=== PATIENT | female | born 1950 | race African-American/Black ===

== ENCOUNTER 2020-08-14 12:13 | Outpatient (CLI) | payer MEDICARE, BC, SELFPAY ==
--- NOTE | ~2020-08-14 | MM_ITS ---
EXAMINATION: MM screening shandra BI w karen HISTORY: Screening mammogram TECHNIQUE: Craniocaudal and mediolateral oblique 3-D tomosynthesis images were obtained and synthetic 2-D images were generated. CAD analysis was submitted and interpreted. COMPARISON: 08/11/2019, 08/09/2018, 08/05/2017 bilateral digital screening mammogram examinations BREAST PARENCHYMAL COMPOSITION: There are scattered areas of fibroglandular density. FINDINGS: Scattered benign calcifications are noted bilaterally. There is no evidence of suspicious m ass, calcification, or architectural distortion to suggest malignancy in either breast. There has bee n no suspicious interval change. IMPRESSION: 1. No mammographic evidence of malignancy. 2. Recommend routine screening mammography in one year. BI-RADS Category 1: Negative Reviewed, dictated and finalized at location A.
--- NOTE | ~2020-08-14 | DEXA_ITS ---
Bone Density Report Name: Shantel Worrell Age: 70 Sex: Female Ethnicity: Black Date of : 1950 Indication: postmenopausal; hysterectomy; Referring Provider: KUN ELIZABETH Study: Bone densitometry was performed. Exam Date: August 14, 2020 Accession number: [id number] Bone Density: Region BMD T-score Z-score Classification AP Spine (L1, L2, L3) 1.116 0.9 2.4 Normal Femoral Neck (Left) 0.834 -0.1 0.7 Normal Total Hip (Left) 1.052 0.9 1.3 Normal Total Hip Bilateral Avg 1.059 0.9 1.4 Normal Femoral Neck (Right) 0.865 0.1 0.9 Normal Total Hip (Right) 1.064 1.0 1.4 Normal World Health Organization criteria for BMD impression classify patients as: Normal (T-score at or above -1.0), Osteopenia (T-score between -1.0 and -2.5), or Osteoporosis (T-score at or below -2.5). 10-year Fracture Risk: FRAX not reported because: All T-scores for Spine Total, Hip Total, Femoral Neck at or above -1.0 Previous Exams: Region Exam Age BMD T-score BMD Change BMD Change Date g/cm2 vs Baseline vs Previous AP Spine(L1, L2, L3) 08/14/2020 70 1.116 0.9 0.076(7.3%)# 0.098(9.6%)# 06/14/2015 65 1.018 0.0 -0.022(-2.1%)# -0.006(-0.6%)# 06/05/2013 63 1.025 0.1 -0.015(-1.5%)# 0.033(3.4%)# 05/29/2011 61 0.991 -0.2 -0.049(-4.7%)* 0.030(3.1%)* 05/16/2009 58 0.962 -0.5 -0.078(-7.5%)* -0.028(-2.9%)* 05/12/2007 56 0.990 -0.3 -0.050(-4.8%)* -0.008(-0.8%) 11/20/2005 55 0.999 -0.2 -0.042(-4.0%)* -0.042(-4.0%)* 09/24/2003 53 1.040 0.2 Total Hip(Left) 08/14/2020 70 1.052 0.9 -0.082(-7.2%)# -0.045(-4.1%)# 06/14/2015 65 1.098 1.3 -0.037(-3.2%)# -0.019(-1.7%)# 06/05/2013 63 1.117 1.4 -0.018(-1.6%)# 0.042(3.9%)# 05/29/2011 61 1.074 1.1 -0.060(-5.3%)* -0.011(-1.0%) 05/16/2009 58 1.085 1.2 -0.049(-4.4%)* 0.002(0.2%) 05/12/2007 56 1.083 1.2 -0.052(-4.6%)* -0.013(-1.2%) 11/20/2005 55 1.096 1.3 -0.038(-3.4%)* -0.038(-3.4%)* 09/24/2003 53 1.134 1.6 Total Hip(Right) 08/14/2020 70 1.064 1.0 -0.096(-8.2%)# -0.036(-3.2%)# 06/14/2015 65 1.099 1.3 -0.060(-5.2%)# -0.018(-1.6%)# 06/05/2013 63 1.117 1.4 -0.043(-3.7%)# 0.002(0.1%)# 05/29/2011 61 1.115 1.4 -0.044(-3.8%)* 0.059(5.6%)* 05/16/2009 58 1.056 0.9 -0.103(-8.9%)* 0.032(3.1%)* 05/12/2007 56 1.024 0.7 -0.135(-11.7%) -0.038(-3.6%)* 11/20/2005 55 1.062 1.0 -0.097(-8.4%)* -0.097(-8.4%)* 09/24/2003 53 1.160 1.8 *Denotes significance at 95% confidence level, LSC for AP Spine
== END 2020-08-14 12:14 | disposition home or self-care (01) ==
PROVIDERS: Visit Provider Obstetrics & Gynecology
DX: Z12.31 Encounter for screening mammogram for malignant neoplasm of breast (principal); Z78.0 Asymptomatic menopausal state
CPT/HCPCS: 77063; 77067; 77080

== ENCOUNTER 2021-09-17 12:19 | Outpatient (CLI) | payer MEDICARE, BC, SELFPAY ==
--- NOTE | ~2021-09-17 | MM_ITS ---
EXAMINATION: MM screening shandra BI w karen HISTORY: Screening mammogram TECHNIQUE: Craniocaudal and mediolateral oblique 3-D tomosynthesis images were obtained and synthetic 2-D images were generated. CAD analysis was submitted and interpreted. COMPARISON: 08/14/2020, 08/11/2019, 08/09/2018 bilateral screening mammogram examinations BREAST PARENCHYMAL COMPOSITION: There are scattered areas of fibroglandular density. FINDINGS: There is no evidence of suspicious mass, calcification, or architectural distortion to sugg est malignancy in either breast. There has been no suspicious interval change. IMPRESSION: 1. No mammographic evidence of malignancy. 2. Recommend routine screening mammography in one year. BI-RADS Category 1: Negative Reviewed, dictated and finalized at location A. AND [employer]
== END 2021-09-17 12:20 | disposition home or self-care (01) ==
LOC: ANHIMG 12:26
PROVIDERS: Visit Provider Obstetrics & Gynecology
DX: Z12.31 Encounter for screening mammogram for malignant neoplasm of breast (principal)
CPT/HCPCS: 77063; 77067

== ENCOUNTER 2022-10-29 14:47 | Outpatient (CLI) | payer MEDICARE, BC, SELFPAY ==
--- NOTE | ~2022-10-29 | MM_ITS ---
EXAMINATION: MM screening shandra BI w karen HISTORY: Screening TECHNIQUE: Craniocaudal and mediolateral oblique 3-D tomosynthesis images were obtained and synthetic 2-D images were generated. CAD analysis was submitted and interpreted. COMPARISON: Comparison to multiple prior studies sequentially, with oldest reviewed study dated 05/2016. BREAST PARENCHYMAL COMPOSITION: Breast composed of scattered areas of fibroglandular density FINDINGS: There is no evidence of suspicious mass, calcification, or architectural distortion to sugg est malignancy in either breast. There has been no suspicious interval change. IMPRESSION: 1. No mammographic evidence of malignancy. 2. Recommend routine screening mammography in one year. BI-RADS Category 1: Negative Reviewed, dictated and finalized at location A. OPERATOR
== END 2022-10-29 14:48 | disposition home or self-care (01) ==
PROVIDERS: Visit Provider Obstetrics & Gynecology
DX: Z12.31 Encounter for screening mammogram for malignant neoplasm of breast (principal)
CPT/HCPCS: 77063; 77067

== ENCOUNTER 2023-01-13 09:17 | Outpatient (CLI) | payer MEDICARE, BC, SELFPAY ==
--- NOTE | ~2023-01-13 | DEXA_ITS ---
Bone Density Report Name: CAMERON LAIRD Age: 72 Sex: Female Ethnicity: Black Date of : 1950 Indication: postmenopausal; screening for osteoporosis; Referring Provider: KUN ELIZABETH Study: Bone densitometry was performed. Exam Date: January 13, 2023 Accession number: [id number] Bone Density: Region BMD T-score Z-score Classification AP Spine(L1-L4) 1.095 0.4 2.1 Normal Femoral Neck (Left) 0.799 -0.5 0.5 Normal Total Hip (Left) 1.055 0.9 1.4 Normal Femoral Neck (Right) 0.854 0.0 0.9 Normal Total Hip (Right) 1.081 1.1 1.6 Normal Total Hip Mean 1.068 1.0 1.5 Normal World Health Organization criteria for BMD impression classify patients as: Normal (T-score at or above -1.0), Osteopenia (T-score between -1.0 and -2.5), or Osteoporosis (T-score at or below -2.5). 10-year Fracture Risk: FRAX not reported because: All T-scores for Spine Total, Hip Total, Femoral Neck at or above -1.0 Previous Exams: Region Exam Age BMD T-score BMD Change BMD Change Date g/cm2 vs Baseline vs Previous AP Spine (L1-L4) 01/13/2023 72 1.095 0.4 0.046 (4.3%)# 0.046 (4.3%)# 06/05/2013 63 1.049 0.0 Total Hip(Left) 01/13/2023 72 1.055 0.9 -0.062 (-5.5%) 0.003 (0.3%)# 08/14/2020 70 1.052 0.9 -0.065 (-5.8%) -0.045 (-4.1%) 06/14/2015 65 1.098 1.3 -0.019 (-1.7%) -0.019 (-1.7%) 06/05/2013 63 1.117 1.4 Total Hip(Right) 01/13/2023 72 1.081 1.1 -0.036 (-3.2%) 0.017 (1.6%)# 08/14/2020 70 1.064 1.0 -0.053 (-4.8%) -0.036 (-3.2%) 06/14/2015 65 1.099 1.3 -0.018 (-1.6%) -0.018 (-1.6%) 06/05/2013 63 1.117 1.4 *Denotes significance at 95% confidence level, LSC for AP Spine = 0.022 g/cm2, LSC for Total Hip = 0.027 g/cm2 # Denotes dissimilar scan types or analysis methods Clinical Information Provided by Patient: Has used the following medications: Vitamin D Patient maximum height was 62 Menopause Age: 49 Onset of menses at age 11 Number of children 1 Impression: The patient has normal bone mass. No significant bone loss was observed. Discussion: BONE DENSITY IS ABOVE THE MINIMUM DESIRABLE LEVEL AT ALL SKELETAL SITES TESTED. This patient?s bone mineral density is above the minimum desirable level (T-score -1.0 or better) at all sites measured. The patient should follow a healthful lifestyle (good nutrition with adequate calcium and vitamin D, and appropriate weight-bearing exercise).
== END 2023-01-13 09:18 | disposition home or self-care (01) ==
LOC: ANHIMG 09:18
PROVIDERS: Visit Provider Obstetrics & Gynecology
DX: Z78.0 Asymptomatic menopausal state (principal)
CPT/HCPCS: 77080